=== PATIENT | female | born 1965 | race African-American/Black ===

== ENCOUNTER 2017-08-05 21:49 | Inpatient (IN) | payer SELFPAY ==
[~2017-08-05] VITALS: Ht 149.9 cm; Wt 68.0 kg
[2017-08-05] MEDS ORDERED: SODIUM CHLORIDE 0.9% 1,000 ML IV ONE (23:39)
[2017-08-06 00:13] LABS: BASOPHILS % 0.8 % (0.0-2.0); EOSINOPHILS % 0.1 % (0.0-5.0); HEMATOCRIT. 37.8 % (36.0-48.0); LYMPHOCYTES % 15.8 % (20.0-50.0); MEAN CORPUSCULAR HEMOGLOBIN 31.1 pg (28.0-32.0); MEAN CORPUSCULAR VOLUME 90.3 fL (81.0-99.0); MEAN PLATELET VOLUME 7.9 fl (7.4-10.4); MONOCYTES % 8.2 % (2.0-8.0); NEUTROPHILS % 75.1 % (40.0-76.0); PLATELET 210 x1000/uL (130-400); RED BLOOD CELL COUNT 4.19 mill/uL (4.2-5.4); RED CELL DISTRIBUTION WIDTH 13.5 % (11.6-14.6)
[2017-08-06 00:25] LABS: AMMONIA 27 uMol/L (<32)
[2017-08-06 00:27] LABS: CARBON DIOXIDE 23 mEq/L (21-32); CHLORIDE 98 mEq/L (98-107); ETHANOL BLOOD < 10 mg/dL; TROPONIN I < 0.02 ng/mL (0.00-0.04)
[2017-08-06] MEDS ORDERED: SODIUM CHLORIDE 0.9% 1,000 ML IV SCH (01:15)
[2017-08-06 01:17] LABS: *AMPHETAMINES SCREEN URINE NEGATIVE (NEGATIVE); *BARBITURATES SCREEN URINE NEGATIVE (NEGATIVE); *BENZODIAZEPINES SCREEN URINE NEGATIVE (NEGATIVE); *COCAINE SCREEN URINE PRESUMTIVE POSITIVE (NEGATIVE); CANNABINOID URINE SCREEN NEGATIVE (NEGATIVE); METHADONE URINE SCREEN NEGATIVE (NEGATIVE); OPIATES URINE SCREEN NEGATIVE (NEGATIVE); PHENCYCLIDINE URINE SCREEN NEGATIVE (NEGATIVE)
[2017-08-06 01:24] LABS: GLUCOSE URINE NEGATIVE (NEGATIVE); KETONES URINE TRACE (NEGATIVE); LEUKOCYTE ESTERASE URINE 1+ (NEGATIVE); NITRITE URINE NEGATIVE (NEGATIVE); OCCULT BLOOD URINE NEGATIVE (NEGATIVE); PH URINE 5.5 (4.5-8.0); PROTEIN URINE 1+ (NEGATIVE); SPECIFIC GRAVITY URINE 1.025 (1.005-1.030); UROBILINOGEN URINE 0.2 E.U./dL (0.2-1.0)
[2017-08-06 01:54] LABS: CLARITY URINE CLOUDY (CLEAR); COLOR URINE YELLOW (YELLOW)
[2017-08-06 09:30] VITALS: BP 102/64
[2017-08-06 11:08] VITALS: BP 102/64
[2017-08-06 12:30] VITALS: BP 118/75
[2017-08-06] MEDS ORDERED: ONDANSETRON HCL 4MG/2ML VIAL IV PRN (12:45)
[2017-08-06] MEDS ORDERED: LEVOFLOXACIN 500MG PREMIX 100 ML IV SCH ×2 (12:45→15:00)
[2017-08-06] MEDS ORDERED: DIPHENHYDRAMINE 50MG/ML VIAL IV PRN (12:45)
[2017-08-06] MEDS ORDERED: CLONIDINE 0.1MG TABLET PO PRN (12:45)
[2017-08-06] MEDS ORDERED: LORAZEPAM 2MG/ML CPJ IV PRN (12:45)
[2017-08-06] MEDS: ACETAMINOPHEN 325MG TABLET PO PRN ×2 (14:32→20:38)
[2017-08-06] MEDS: THIAMINE HCL 100MG TABLET PO SCH (14:32)
[2017-08-06] MEDS: ASPIRIN 81MG EC TABLET PO SCH (14:33)
[2017-08-06] MEDS: MULTIVITAMINS,THER W-MINERALS TABLET PO SCH (14:33)
[2017-08-06] MEDS: SERTRALINE HCL 25MG TABLET PO SCH (14:33)
[2017-08-06 16:38] VITALS: BP 120/63
[2017-08-06 20:00] VITALS: BP 125/85
[2017-08-07] VITALS: BP 120/65
[2017-08-07 04:00] VITALS: BP 114/75
[2017-08-07 07:01] LABS: BASOPHILS % 0.5 % (0.0-2.0); EOSINOPHILS % 0.7 % (0.0-5.0); HEMATOCRIT. 37.7 % (36.0-48.0); HEMOGLOBIN. 13.1 g/dL (12.0-16.0); LYMPHOCYTES % 30.1 % (20.0-50.0); MEAN CORPUSCULAR HEMOGLOBIN 31.3 pg (28.0-32.0); MEAN CORPUSCULAR VOLUME 89.9 fL (81.0-99.0); MEAN PLATELET VOLUME 8.5 fl (7.4-10.4); NEUTROPHILS % 59.7 % (40.0-76.0); PLATELET 228 x1000/uL (130-400); RED BLOOD CELL COUNT 4.19 mill/uL (4.2-5.4); RED CELL DISTRIBUTION WIDTH 13.7 % (11.6-14.6)
[2017-08-07 07:09] LABS: CARBON DIOXIDE 24 mEq/L (21-32); CHLORIDE 102 mEq/L (98-107)
[2017-08-07 08:00] VITALS: BP 126/81
[2017-08-07] MEDS: MULTIVITAMINS,THER W-MINERALS TABLET PO SCH (08:09)
[2017-08-07] MEDS: ASPIRIN 81MG EC TABLET PO SCH (08:09)
[2017-08-07] MEDS: THIAMINE HCL 100MG TABLET PO SCH (08:09)
[2017-08-07] MEDS: SERTRALINE HCL 25MG TABLET PO SCH (08:09)
[2017-08-07] MEDS: LEVOFLOXACIN 250MG PREMIX 50 ML IV SCH (11:42)
[2017-08-07 12:00] VITALS: BP 116/74
[2017-08-07 16:00] VITALS: BP 128/86
[2017-08-07] MEDS ORDERED: INFLUENZA VIRUS VACCINE 0.5ML SYR IM ONE (16:00)
[2017-08-07 20:00] VITALS: BP 117/76
[2017-08-08 00:20] VITALS: BP 111/77
[2017-08-08 04:00] VITALS: BP 120/81
[2017-08-08 08:00] VITALS: BP 117/76
[2017-08-08] MEDS: MULTIVITAMINS,THER W-MINERALS TABLET PO SCH (08:29)
[2017-08-08] MEDS: SERTRALINE HCL 25MG TABLET PO SCH (08:29)
[2017-08-08] MEDS: ASPIRIN 81MG EC TABLET PO SCH (08:29)
[2017-08-08] MEDS: THIAMINE HCL 100MG TABLET PO SCH (08:29)
[2017-08-08 13:30] VITALS: BP 110/72
[2017-08-08] MEDS: LEVOFLOXACIN 250MG PREMIX 50 ML IV SCH (13:31)
[2017-08-08 16:00] VITALS: BP 106/77
[2017-08-08] MEDS: ACETAMINOPHEN 325MG TABLET PO PRN (19:06)
[2017-08-09] VITALS: BP 115/65
[2017-08-09] MEDS: ACETAMINOPHEN 325MG TABLET PO PRN ×2 (01:37→08:30)
[2017-08-09 04:00] VITALS: BP 102/74
[2017-08-09 07:39] VITALS: BP 110/78
[2017-08-09 08:00] VITALS: BP 120/75
[2017-08-09] MEDS: SERTRALINE HCL 25MG TABLET PO SCH (08:30)
[2017-08-09] MEDS: THIAMINE HCL 100MG TABLET PO SCH (08:30)
[2017-08-09] MEDS: ASPIRIN 81MG EC TABLET PO SCH (08:30)
[2017-08-09] MEDS: MULTIVITAMINS,THER W-MINERALS TABLET PO SCH (08:31)
[2017-08-09] MEDS ORDERED: LEVOFLOXACIN 250MG TABLET PO SCH (11:00)
[2017-08-09 12:22] VITALS: BP 120/78
== END 2017-08-09 14:00 | disposition home or self-care (01) | DRG 204 ==
LOC: ER 22:40 → 6WST 08-06 01:17 → ENRESERV 08-06 07:43
PROVIDERS: ADMIT Hospitalist; ATTEND Hospitalist
DX: R55 Syncope and collapse (principal); N17.9 Acute kidney failure, unspecified; F32.9 Major depressive disorder, single episode, unspecified; E86.0 Dehydration; F19.10 Other psychoactive substance abuse, uncomplicated; F10.21 Alcohol dependence, in remission; F17.200 Nicotine dependence, unspecified, uncomplicated; Z79.899 Other long term (current) drug therapy; Z59.0 Homelessness; Z88.0 Allergy status to penicillin
CPT/HCPCS: 36415; 70450; 71010; 80053; 80305; 80307; 80329; 81001; 82140; 83605; 84484; 85025; 87086; 90686; 93005; 96360; 96361; 99285; G0482; J1956; J2060; J7030; J7040